=== PATIENT | female | born 1995 | race African-American/Black ===

== ENCOUNTER 2020-05-16 11:49 | Emergency (ER) | payer OTHER ==
[2020-05-16 12:03] VITALS: TEMP 98.3; BMI 25.7
--- NOTE | 2020-05-16 12:21 | PDOC ---
History of Present Illness - General Chief Complaint: Ingestion Stated Complaint: INJESTED HYDROGEN PEROXIDE Time Seen by Provider: 05/16/20 12:16 History Source: Patient - History of Present Illness Timing/Duration: other (this am) Past History - Medical History Allergies/Adverse Reactions: Allergies Allergy/AdvReac Type Severity Reaction Status Date / Time No Known Allergies Allergy Verified 05/16/20 11:57 Home Medications: Ambulatory Orders NK [No Known Home Medication] 05/16/20 COPD: No - Reproductive History Is Patient Now?: No - Immunization History Immunization Up to Date: Yes - Psycho-Social/Smoking History Smoking History: Never smoked - Substance Abuse Hx (Audit-C & DAST Scrn) How often the patient has a drink containing alcohol: Never Score: In Men: 4 or > Positive; In Women: 3 or > Positive: 0 Screen Result (Pos requires Nsg. Audit-10AR): Negative In the last yr the pt used illegal drug/Rx for NonMed reason: No Score: Yes response is considered Positive: 0 Screen Result (Positive result requires Nsg. DAST-10): Negative Review of Systems - Review of Systems Respiratory: No: Cough, Shortness of Breath Cardiac (ROS): No: Chest Pain ABD/GI: Yes: Nausea, Vomiting. No: Abdominal cramping Neurological: No: Headache, Numbness, Seizure, Tingling, Dizziness *Physical Exam - Vital Signs Last Vital Signs Temp Pulse Resp BP Pulse Ox 98.3 F 94 H 18 134/81 100 05/16/20 11:58 05/16/20 11:58 05/16/20 11:58 05/16/20 11:58 05/16/20 11:58 - Physical Exam General Appearance: Yes: Appropriately Dressed HEENT: positive: Normal Voice Neck: positive: Supple Respiratory/Chest: negative: Respiratory Distress Gastrointestinal/Abdominal: positive: Soft. negative: Tender Integumentary: positive: Dry, Warm Neurologic: positive: Fully Oriented, Alert, Normal Mood/Affect Medical Decision Making - Medical Decision Making 05/16/20 12:19 24-year-old female no significant history, here w/ n/v and mild burning pain to epigastrium that started immediately after accidentally ingesting household hydrogen peroxide < 1-1/2 hrs prior to coming in. Patient states she had stored a small amount of hydrogen peroxide in a regular sized water bottle, that she kept in her bag, and ingested less than a quarter amount of fluid while at grandmother's house. Had 1-2 episodes of nausea/vomiting that resolved. Only reports mild burning pain to her epigastric area at this time. No headache, dizziness seizures, cough or shortness of breath. No psych issues or SI/attempts per pt. Patient well-appearing and stable. Case discussed with Shukritwan, poison informative specialist, who states given small amount of ingestion, no labs or other intervention needed at this time, that patient can be observed in the ER for 2 hours and discharged if remains stable and well patsy. States the most serious concern w/ hydrogen peroxide ingestion is usually neuro or GI related, i.e seizures, gastric perf or gas embolism but that those complications unlikely with small amount that patient ingested 05/16/20 13:46 Pt requesting to be discharged at this time. States her epigastric burning has improved and that she is no longer nauseous. Drank an entire pitcher of water in ER w/ no issues. Stable for dc w/ strict return precautions Discharge - Discharge Information Problems reviewed: Yes Clinical Impression/Diagnosis: Ingestion of caustic substance Qualifiers: Encounter type: initial encounter Injury intent: accidental or unintentional Qualified Code(s): T54.91XA - Toxic effect of unspecified corrosive substance, accidental (unintentional), initial encounter Condition: Improved Disposition: HOME - Follow up/Referral - Patient Discharge Instructions Additional Instructions: Continue to hydrate and return to ER for worsening of symptoms as discussed - Post Discharge Activity Work/Back to School Note: Back to Work
[2020-05-16 14:17] VITALS: BP 129/79; PULSE 82
== END 2020-05-16 14:18 | disposition home or self-care (01) ==
LOC: JER 11:49
DX: T54.91XA Toxic effect of unspecified corrosive substance, accidental (unintentional), initial encounter (principal)
CPT/HCPCS: 99283-25